=== PATIENT | male | born 1945 ===

== ENCOUNTER 2019-06-24 07:57 | Day surgery (SDC) | payer OTHER ==
[~2019-06-24 07:57] MED LIST: Acetaminophen TAB* 325 MG PO PRN
[2019-06-24] MEDS ORDERED: fentaNYL* 50 MCG/ML 2 ML VIAL (100 MCG VIAL) ONE (09:07)
[2019-06-24] MEDS ORDERED: Midazolam* 1 MG/ML 2 ML VIAL (2 MG) ONE ×2 (09:07→09:44)
[2019-06-24] MEDS ORDERED: Lidocaine 1% MPF ** 5 ML VIAL ONE (09:49)
[2019-06-24] MEDS ORDERED: Povidone Iodine 5% OPTH* 30 ML BTL ONE (09:49)
[2019-06-24] MEDS ORDERED: Cyclopentolate 1% OPTH.SOL* 2 ML BTL ONE (09:49)
[2019-06-24] MEDS ORDERED: Tetracaine 0.5% OPTH.SOL 4 ML* 1 DROP BTL ONE (09:49)
[2019-06-24] MEDS ORDERED: Tropicamide 1% OPTH.SOL* BTL ONE (09:49)
[2019-06-24] MEDS ORDERED: acetaZOLAMIDE TAB* 250 MG ONE (09:49)
[2019-06-24] MEDS ORDERED: Ketorolac 0.5% OPHTH (NF) 0.5 % 5 ML BTL ONE (09:49)
[2019-06-24] MEDS ORDERED: Neomycin/Polymy/Dex OPHTH.OIN* 3.5 GM ONE (09:49)
[2019-06-24] MEDS ORDERED: Phenylephrine OPHTH SOL 2.5%* 2 ML ONE (09:49)
[2019-06-24 10:46] VITALS: BP 121/61
--- NOTE | 2019-06-24 22:35 | OP ---
DATE OF OPERATION: 06/24/19 - [facility] DATE OF : 41 SURGEON: Ronald Bustillo MD. ANESTHESIA: Monitored anesthesia care. PREOPERATIVE DIAGNOSIS: Cataract, right eye. POSTOPERATIVE DIAGNOSIS: Cataract, right eye. OPERATIVE PROCEDURE: Extracapsular cataract extraction of the right eye with intraocular lens implant. IMPLANT: SN60WF 22.0 diopter lens to the right eye. COMPLICATIONS: None. DESCRIPTION OF PROCEDURE: The patient was given phenylephrine 2.5 % and cyclopentolate 1% eye drops to the operative eye in the preoperative area. The patient was taken to the operating room where a time-out was taken to identify the correct patient, site, and side of surgery. The patient's right eye was prepped and draped in the usual sterile fashion with 5% Betadine. A second time- out was taken to verify the correct patient, side, and site of surgery, as well as the correct lens implant. A lid speculum was placed to the right eye. A 1mm paracentesis blade was used to make a clear corneal incision. Preservative-free 1% lidocaine was injected into the anterior chamber. DisCoVisc was then injected into the anterior chamber. A 2.75 mm keratome blade was used to make a triplanar incision. A cystotome initiated a capsulorrhexis, which was completed with Utrata forceps in a continuous and curvilinear manner. Hydrodissection of the lens was performed with BSS on a cannula. The lens could be spun in a capsular bag. The phacoemulsification handpiece was used with a divide-and- conquer technique to remove the nucleus. The I/A handpiece then removed the residual cortical lens material. DisCoVisc was injected to inflate the capsular bag. The planned SN60WF 22.0 diopter lens was injected into the capsular bag. The residual DisCoVisc was removed from the eye with the I/A handpiece. The corneal incisions were hydrated and no leaks occurred at physiologic pressure around 20 mmHg per palpation. The lid speculum was removed and drapes were removed. Maxitrol ointment was placed to the surface of the operative eye. An adhesive patch and shield was then placed on the operative eye. The patient was taken to the post-operative area in stable condition. [id number]/[facility] #: [id number] [facility]
== END 2019-06-24 10:30 | disposition home or self-care (01) ==
LOC: OREAST 07:57
PROVIDERS: ATTEND Student in an Organized Health Care Education/Training Program
DX: H25.811 Combined forms of age-related cataract, right eye (principal); E78.00 Pure hypercholesterolemia, unspecified; I10 Essential (primary) hypertension; Z72.0 Tobacco use; Z85.46 Personal history of malignant neoplasm of prostate; I65.29 Occlusion and stenosis of unspecified carotid artery
CPT/HCPCS: A9270-GY; J2250; J3010; V2632

== ENCOUNTER 2019-07-01 08:20 | Day surgery (SDC) | payer MEDICARE, OTHER ==
[~2019-07-01 08:20] MED LIST changes: -Acetaminophen TAB* 325 MG PO PRN; +Buffered Lidocaine 1% SYRIN* 1 ML/SYRINGE INTRADERM ONE
[2019-07-01] MEDS ORDERED: Midazolam* 1 MG/ML 2 ML VIAL (2 MG) ONE (09:12)
[2019-07-01] MEDS ORDERED: Neomycin/Polymy/Dex OPHTH.OIN* 3.5 GM ONE (10:33)
[2019-07-01] MEDS ORDERED: Phenylephrine OPHTH SOL 2.5%* 2 ML ONE (10:33)
[2019-07-01] MEDS ORDERED: Povidone Iodine 5% OPTH* 30 ML BTL ONE (10:33)
[2019-07-01] MEDS ORDERED: acetaZOLAMIDE TAB* 250 MG ONE (10:33)
[2019-07-01] MEDS ORDERED: Tropicamide 1% OPTH.SOL* BTL ONE (10:33)
[2019-07-01] MEDS ORDERED: Lidocaine 1% MPF ** 5 ML VIAL ONE (10:33)
[2019-07-01] MEDS ORDERED: Tetracaine 0.5% OPTH.SOL 4 ML* 1 DROP BTL ONE (10:33)
[2019-07-01] MEDS ORDERED: Cyclopentolate 1% OPTH.SOL* 2 ML BTL ONE (10:33)
[2019-07-01] MEDS ORDERED: Ketorolac 0.5% OPHTH (NF) 0.5 % 5 ML BTL ONE (10:33)
[2019-07-01 10:56] VITALS: BP 131/71
--- NOTE | 2019-07-01 14:46 | OP ---
DATE OF OPERATION: 07/01/19 - [facility] DATE OF : 41 SURGEON: Ronald Bustillo MD ANESTHESIA: Monitored anesthesia care. PREOPERATIVE DIAGNOSIS: Cataract, left eye. POSTOPERATIVE DIAGNOSIS: Cataract, left eye. OPERATIVE PROCEDURE: Extracapsular cataract extraction of the left eye with intraocular lens implant. IMPLANT: SN60WF 21.0 diopter lens to the left eye. COMPLICATIONS: None. DESCRIPTION OF PROCEDURE: The patient was given phenylephrine 2.5 % and cyclopentolate 1% eye drops to the operative eye in the preoperative area. The patient was taken to the operating room where a time-out was taken to identify the correct patient, site, and side of surgery. The patient's left eye was prepped and draped in the usual sterile fashion with 5% Betadine. A second time- out was taken to verify the correct patient, side, and site of surgery, as well as the correct lens implant. A lid speculum was placed to the left eye. A 1mm paracentesis blade was used to make a clear corneal incision. Preservative-free 1% lidocaine was injected into the anterior chamber. DisCoVisc was then injected into the anterior chamber. A 2.75 mm keratome blade was used to make a triplanar incision. A cystotome initiated a capsulorrhexis, which was completed with Utrata forceps in a continuous and curvilinear manner. Hydrodissection of the lens was performed with BSS on a cannula. The lens could be spun in a capsular bag. The phacoemulsification handpiece was used with a divide-and- conquer technique to remove the nucleus. The I/A handpiece then removed the residual cortical lens material. DisCoVisc was injected to inflate the capsular bag. The planned SN60WF 21.0 diopter lens was injected into the capsular bag. The residual DisCoVisc was removed from the eye with the I/A handpiece. The corneal incisions were hydrated and no leaks occurred at physiologic pressure around 20 mmHg per palpation. The lid speculum was removed and drapes were removed. Maxitrol ointment was placed to the surface of the operative eye. An adhesive patch and shield was then placed on the operative eye. The patient was taken to the postoperative area in stable condition. [id number]/[facility] #: [id number] [facility]
== END 2019-07-01 10:51 | disposition home or self-care (01) ==
LOC: OREAST 08:20
PROVIDERS: ATTEND Student in an Organized Health Care Education/Training Program
DX: H25.812 Combined forms of age-related cataract, left eye (principal); Z96.1 Presence of intraocular lens; Z79.82 Long term (current) use of aspirin; E78.00 Pure hypercholesterolemia, unspecified; F17.210 Nicotine dependence, cigarettes, uncomplicated; I12.9 Hypertensive chronic kidney disease with stage 1 through stage 4 chronic kidney disease, or unspecified chronic kidney disease; N18.2 Chronic kidney disease, stage 2 (mild); E78.2 Mixed hyperlipidemia; I65.23 Occlusion and stenosis of bilateral carotid arteries; M54.40 Lumbago with sciatica, unspecified side; Z71.3 Dietary counseling and surveillance
CPT/HCPCS: A9270-GY; J2250; V2632